=== PATIENT | male | born 1970 | race African-American/Black ===

== ENCOUNTER 2018-02-25 23:13 | Emergency (ER) | payer BC, OTHER ==
[~2018-02-25] VITALS: Ht 175.3 cm; Wt 90.7 kg
--- NOTE | ~2018-02-25 | EKG ---
[facility] [place] [address] ELECTROCARDIOGRAM REPORT Name: BRAYAN LICONA [id number] Admission: 02/25/18 Attend Phys: Discharge: 02/26/18 Date of : 66 Report #: [id number] THIS REPORT FOR: //name// [facility] ED Test Date: 2018-02-25 Test Time: 23:17:05 Pat Name: BRAYAN LICONA Department: Room: Gender: Director Digital Marketing: MZOOK : 1970 Requested By: Treva Jim Order Number: [id number] MD: Francisco Burk Measurements Intervals [place] Rate: 59 P: 0 CO: 184 QRS: -45 QRSD: 98 T: -23 QT: 387 QTc: 384 Interpretive Statements Sinus bradycardia RSR' in V1 or V2, probably normal variant Inferior infarct, age indeterminate No previous ECG available for comparison Electronically Signed On 02-26-2018 7:49:37 CDT by Francisco Burk [email or web address] <ELECTRONICALLY SIGNED> By: Francisco Burk MD, [facility] 02/26/18 0749 [id number] 2317 Francisco Burk MD, FACC /EPI
[2018-02-25] MEDS ORDERED: ACETAMINOPHEN-1 EAC1 PO (23:22)
[2018-02-25] MEDS ORDERED: CARVEDILOL3.125 MG PO (23:22)
[2018-02-25] MEDS ORDERED: CRESTOR20 MG PO (23:23)
[2018-02-25] MEDS ORDERED: BRILINTA90 MG PO (23:23)
[2018-02-25] MEDS ORDERED: NITROSTAT0.4 M1 SUBLING (23:23)
[2018-02-25] MEDS ORDERED: BAYER CHEWABLE81 MG PO (23:23)
[2018-02-26 00:13] LABS: ABSOLUTE NEUTROPHILS 4.4 thou/uL (1.4-8.2); BASOPHILS 0.4 % (0.0-2.0); EOSINOPHILS 6.5 % (0.0-3.0); HEMATOCRIT 36.3 % (42.0-52.0); HEMOGLOBIN 11.9 gm/dL (14.0-18.0); LYMPHOCYTES 22.7 % (24.0-44.0); MCH 25.2 pg (26.0-34.0); MCHC 32.8 g/dL (28.0-37.0); MCV 76.8 fL (80.0-100.0); MONOCYTES 9.2 % (1.0-8.0); PLATELET COUNT 247 thou/uL (150-400); POLYS 61.2 % (36.0-66.0); RBC 4.72 mil/uL (4.50-6.00); RDW 15.4 % (10.5-14.5); WBC 7.2 thou/uL (4.0-11.0)
[2018-02-26 00:18] LABS: CALCIUM 9.5 mg/dL (8.5-10.1); POTASSIUM 4.5 mmol/L (3.5-5.1)
[2018-02-26 00:27] LABS: TROPONIN-I 0.19 ng/mL (<0.06)
[2018-02-26 02:55] VITALS: BP 135/99
== END 2018-02-26 02:57 | disposition home or self-care (01) ==
LOC: ER 23:13
PROVIDERS: Emergency Medicine
DX: I10 Essential (primary) hypertension (principal); R20.2 Paresthesia of skin